=== PATIENT | male | born 1970 ===

== ENCOUNTER 2017-09-09 23:47 | Emergency (ER) | payer MEDICAID, OTHER ==
[2017-09-09] MEDS ORDERED: Diphtheria,Pertussis(Acell),Tetanus Vaccine 0.5 ML Syringe IM ONE (23:51)
[2017-09-09] MEDS ORDERED: Bacitracin Oint 1 GM U/D Packet TOP ONE (23:52)
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
== END 2017-09-10 00:10 | disposition home or self-care (01) ==
LOC: MW.ED 23:47
DX: S01.01XA Laceration without foreign body of scalp, initial encounter (principal); S09.90XA Unspecified injury of head, initial encounter; Y08.09XA Assault by strike by other specified type of sport equipment, initial encounter; Z23 Encounter for immunization
CPT/HCPCS: 12005; 90471; 90715; 99283-25; 99284

== ENCOUNTER 2017-09-10 06:42 | Emergency (ER) | payer SELFPAY ==
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
== END 2017-09-10 07:00 | disposition home or self-care (01) ==
LOC: MW.ED 06:42
DX: Z02.9 Encounter for administrative examinations, unspecified (principal); F17.210 Nicotine dependence, cigarettes, uncomplicated; Z88.0 Allergy status to penicillin
CPT/HCPCS: 99282; 99283